=== PATIENT | female | born 1995 | race Hispanic/Latino ===

== ENCOUNTER 2022-07-19 19:00 | Emergency (ER) | payer OTHER ==
[~2022-07-19] VITALS: Ht 165.1 cm; Wt 95.3 kg
[2022-07-19] MEDS ORDERED: DIPHTH/TETANUS/ACEL. PERTUSSIS 0.5 ML SYR IM ONE (19:30)
[2022-07-19] MEDS ORDERED: Morphine 4mg INJECTION 4 MG/ML INJ IM ONE (19:45)
[2022-07-19] MEDS ORDERED: TETANUS/DIPHTHERIA TOX ADULT 0.5 ML SYR ONE (20:04)
== END 2022-07-19 23:03 | disposition home or self-care (01) ==
LOC: FSED 19:04
DX: S20.212A Contusion of left front wall of thorax, initial encounter (principal); S00.83XA Contusion of other part of head, initial encounter; S40.021A Contusion of right upper arm, initial encounter; S80.11XA Contusion of right lower leg, initial encounter; M54.50 Low back pain, unspecified; V80.010A Animal-rider injured by fall from or being thrown from horse in noncollision accident, initial encounter; Y92.89 Other specified places as the place of occurrence of the external cause
CPT/HCPCS: 70450; 71250; 72125; 72128; 72131; 73070; 73090; 73120; 73562; 73590; 73630; 74176; 90471; 90714 ×2; 99283; J2270

== ENCOUNTER 2022-08-11 15:56 | Emergency (ER) | payer SELFPAY ==
[~2022-08-11] VITALS: Ht 160 cm; Wt 104.3 kg
[2022-08-11] MEDS ORDERED: AMOX TR-K CLV1 EAC2 PO (16:21)
== END 2022-08-11 16:25 | disposition home or self-care (01) ==
LOC: FSED 16:09
DX: R50.9 Fever, unspecified (principal); H66.93 Otitis media, unspecified, bilateral; H83.91 Unspecified disease of right inner ear
CPT/HCPCS: 99282